=== PATIENT | male | born 1970 | race American Indian/Alaskan Native ===

== ENCOUNTER 2017-05-01 19:19 | Inpatient (IN) | payer OTHER ==
[2017-05-01 19:20] VITALS: BMI 35.6
[2017-05-01] MEDS ORDERED: Piperacillin/Tazobact 3.375 GM in Sodium Chloride 100 ML IVPB STA (20:14)
--- NOTE | 2017-05-01 20:19 | C.PDOC ---
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 Patient admits that he has an intermittent fever. Patient denies headache, dizziness, chills, sore throat, CP, SOB, dyspnea, abd. pain, V/D, denies weakness, sensory or vascular deficits to RIght arm. Ambulate to ED for evaluation, not in any apparent distress. Time Seen by Provider: 05/01/17 19:59 Chief Complaint (Nursing): Abnormal Skin Integrity History Per: Patient History/Exam Limitations: no limitations Onset/Duration Of Symptoms: Days Current Symptoms Are (Timing): Still Present Severity: Moderate Past Medical History Reviewed: Historical Data, Nursing Documentation, Vital Signs Vital Signs: Last Vital Signs Temp 99.1 F 05/02/17 02:51 Pulse 73 05/02/17 02:51 Resp 16 05/02/17 02:51 BP 122/71 05/02/17 02:51 Pulse Ox 97 05/02/17 02:51 - Medical History PMH: Asthma Denies: Depression Surgical History: No Surg Hx Family History: States: No Known Family Hx - Social History Hx Tobacco Use: Yes Hx Alcohol Use: Yes Hx Substance Use: Yes (pt denies on 05/01/17) - Immunization History Hx Tetanus Toxoid Vaccination: No Hx Influenza Vaccination: Yes Hx Pneumococcal Vaccination: No Review Of Systems Except As Marked, All Systems Reviewed And Found Negative. Constitutional: Positive for: Fever. Negative for: Chills Musculoskeletal: Positive for: Arm Pain (right forearm pain) Neurological: Negative for: Weakness, Numbness Physical Exam - Physical Exam Appears: Well, Non-toxic, No Acute Distress Skin: Normal Color, Warm, Other ((+)Right forearm tender mass 3#4cm (+) flactulance, (+) proximal streaking) Eye(s): bilateral: PERRL Oral Mucosa: Moist Neck: Trachea Midline, Supple Cardiovascular: Rhythm Regular Respiratory: No Decreased Breath Sounds, No Accessory Muscle Use, No Stridor, No Wheezing Gastrointestinal/Abdominal: Soft, No Tenderness, No Distention, No Guarding Back: No CVA Tenderness, No Vertebral Tenderness Extremity: Normal ROM (RUE), Tenderness (Right foream), Capillary Refill (Right hand), No Deformity Neurological/Psych: Oriented x3, Normal Speech, Normal Motor, Normal Sensation, Normal Reflexes ED Course And Treatment - Laboratory Results Result Diagrams: 05/01/17 20:25 05/01/17 20:25 Lab Interpretation: No Acute Changes O2 Sat by Pulse Oximetry: 96 (RA) Pulse Ox Interpretation: Normal Progress Note: BLood work review, no acute abdnormalities. No leukocytosis. Blood cx- pending. Pt has clinical findings c/w Right forearm abscess with cellulitis. Case discussed with Med-on-call and admission arranged. Surgical conulst called for , pt was seen by sirgical resident. Medical Decision Making Medical Decision Making: Plan: --Labs --Urinalysis Disposition - Disposition Disposition: HOSPITALIZED Disposition Time: 21:53 Condition: STABLE - Clinical Impression Clinical Impression: Cellulitis and abscess of other specified site - PA / CT MRI TECHNOLOGIST / Resident Statement MD/DO has reviewed & agrees with the documentation as recorded. - Scribe Statement The provider has reviewed the documentation as recorded by the Edis Guallpa Provider Attestation All medical record entries made by the Edis were at my direction and personally dictated by me. I have reviewed the chart and agree that the record accurately reflects my personal performance of the history, physical exam, medical decision making, and the department course for this patient. I have also personally directed, reviewed, and agree with the discharge instructions and disposition.
[2017-05-01 20:29] LABS: BASO # 0.1 K/uL (0.0-0.2); EOS # 0.1 K/uL (0.0-0.7); EOS % 0.9 % (0.0-4.0); HEMOGLOBIN 13.1 g/dL (12.0-18.0); LYMPH # 1.7 K/uL (1.0-4.3); LYMPH % 21.5 % (20.0-40.0); MEAN CELL VOLUME 89.8 fL (80.0-94.0); MEAN CORPUSCULAR HEMOGLOBIN 29.2 pg (27.0-31.0); MEAN CORPUSCULAR HGB CONC 32.6 g/dL (33.0-37.0); MEAN PLATELET VOLUME 7.5 fL (7.2-11.7); MONO # 1.1 K/uL (0.0-0.8); MONO % 14.3 % (0.0-10.0); NEUT % 62.3 % (50.0-75.0); RBC 4.49 Mil/uL (4.40-5.90); RED CELL DISTRIBUTION WIDTH 13.9 % (11.5-14.5)
[2017-05-01] MEDS ORDERED: Piperacill/Tazo 3.375gm in Dex 3.375 GM/50 ML BAG IVPB STA (20:31)
[2017-05-01 20:41] LABS: BLOOD UREA NITROGEN 7 mg/dL (9-20); CALCIUM 8.2 mg/dl (8.6-10.4); GFR AFRICAN-AMERICAN > 60; GFR NON-AFRICAN AMERICAN > 60
[2017-05-01 20:45] LABS: SQUAMOUS EPITHIAL < 1 /hpf (0-5); URINE BILIRUBIN NEGATIVE (NEGATIVE); URINE BLOOD 1+ (NEGATIVE); URINE CLARITY Clear (Clear); URINE COLOR Yellow (YELLOW); URINE GLUCOSE (UA) NORMAL (Normal); URINE LEUKOCYTE ESTERASE NEG Leu/uL (Negative); URINE NITRATE NEGATIVE (NEGATIVE); URINE PROTEIN NEGATIVE (NEGATIVE)
[2017-05-01] MEDS ORDERED: Vancomycin 1 gm/NS 200 ml 1 GM/200 ML BAG IVPB SCH (20:45)
[2017-05-01 20:51] LABS: BARBITURATES, UR NEGATIVE (NEGATIVE); BENZODIAZEPINES, UR NEGATIVE (NEGATIVE); PHENCYCLIDINE, UR NEGATIVE (NEGATIVE)
[2017-05-01 21:13] LABS: OPIATES, UR POSITIVE (NEGATIVE)
--- NOTE | 2017-05-01 22:35 | CP.PCM.CON ---
History of Present Illness - History of Present Illness History of Present Illness: General Surgery Consult for Dr. Terry Reason for consult: R forearm abscess 47 M with PMH of IVDA presents to the [facility] for right forearm cellulitis and abscess. Patient states that has been present for the past 4 days. Patient has had similar issue in the past. He states that it gradually developed and has progressively worse. Patient reports to using IV heroin whihc he last used 2 days ago. He states that he usually injects in his right arm. He rates pain as moderate to severe. He describes the pain as constant and aching located in proximal right forearm. Palpation and movement exacerbates pain while nothing alleviates it. Admit fever/chills. Denies cp, SOB, palpitations, abdominal pain , nausea, vomiting, diarrhea. PMH: [place] Meds: As per EMR ALLergy: NKDA PSH: Right arm surgery for penetrating wounds, brachial artery reconstruction FH: unknown Soical: smokes just under pack per day for at least 20 years, uses IV heroin daily, denies EtOH use Review of Systems - Review of Systems All systems: reviewed and no additional remarkable complaints except (as per hpi ) Past Patient History - Past Social History Smoking Status: Smoker Currrent Status Unknown - PULMONARY Hx Asthma: Yes - PSYCHIATRIC Hx Depression: No Hx Substance Use: Yes (pt denies on 05/01/17) - SURGICAL HISTORY Hx Surgeries: Yes Other/Comment: RT arm - ANESTHESIA Hx Anesthesia: Yes Hx Anesthesia Reactions: No Meds Allergies/Adverse Reactions: Allergies Allergy/AdvReac Type Severity Reaction Status Date / Time No Known Allergies Allergy Verified 06/26/13 14:51 - Medications Medications: Current Medications Vancomycin/Sodium Chloride (Vancomycin 1 Gm/Ns 200 Ml) 1 gm in 200 mls @ 166.7 mls/hr IVPB STAT [facility] Stop: 05/06/17 21:01 Piperacillin Sod/Tazobactam (Sod 3.375 gm/ Sodium Chloride) 100 mls @ 200 mls/ hr IVPB Q8H [facility] Piperacillin Sod/Tazobactam Sod (Zosyn 3.375 Gm Iv Premix) 3.375 gm in 50 mls @ 100 mls/hr IVPB Q8H [facility] Tramadol HCl (Ultram) 50 mg PO TID IRENE Physical Exam - Constitutional Appears: No Acute Distress - Head Exam Head Exam: ATRAUMATIC, NORMOCEPHALIC - Eye Exam Eye Exam: Normal appearance - ENT Exam ENT Exam: Mucous Membranes Dry - Respiratory Exam Respiratory Exam: NORMAL BREATHING PATTERN - Cardiovascular Exam Cardiovascular Exam: REGULAR RHYTHM - GI/Abdominal Exam GI & Abdominal Exam: Normal Bowel Sounds, Soft. absent: Tenderness - Extremities Exam Additional comments: RUE: proximal forearm lesion that is raised and erythematous, ~6 cm in diameter , small fluctuance area in center, indurated - Back Exam Back exam: absent: CVA tenderness (L), CVA tenderness (R) - Neurological Exam Neurological exam: Alert, Oriented x3 - Psychiatric Exam Psychiatric exam: Normal Affect, Normal Mood - Skin Skin Exam: Dry, Warm Results - Vital Signs Recent Vital Signs: Last Vital Signs Temp 99.8 F H 05/01/17 19:48 Pulse 96 H 05/01/17 19:48 Resp 18 05/01/17 19:48 BP 147/91 H 05/01/17 19:48 Pulse Ox 96 05/01/17 22:00 - Labs Result Diagrams: 05/01/17 20:25 05/01/17 20:25 Labs: Laboratory Results - last 24 hr 05/01/17 05/01/17 05/01/17 20:25 20:25 20:25 WBC 8.0 RBC 4.49 Hgb 13.1 Hct 40.3 MCV 89.8 MCH 29.2 MCHC 32.6 L RDW 13.9 Plt Count 323 MPV 7.5 Neut % (Auto) 62.3 Lymph % (Auto) 21.5 [place] % (Auto) 14.3 H Eos % (Auto) 0.9 Baso % (Auto) 1.0 Neut # 5.0 Lymph # 1.7 [place] # 1.1 H Eos # 0.1 Baso # 0.1 Sodium 129 L Potassium 4.1 Chloride 94 L Carbon Dioxide 27 Anion Gap 12 BUN 7 L Creatinine 0.8 Est GFR ( Amer) > 60 Est GFR (Non-Af Amer) > 60 Random Glucose 116 H Calcium 8.2 L Urine Color Yellow Urine Clarity Clear Urine pH 6.0 Ur Specific [place] 1.014 Urine Protein Negative Urine Glucose (UA) Normal Urine Ketones Negative Urine Blood 1+ H Urine Nitrate Negative Urine Bilirubin Negative Urine Urobilinogen 4.0 Ur Leukocyte Esterase Neg Urine RBC (Auto) 6 H Ur Squamous Epith Cells < 1 Urine Opiates Screen Urine Methadone Screen Ur Barbiturates Screen Ur Phencyclidine Scrn Ur Amphetamines Screen U Benzodiazepines Scrn U Oth Cocaine Metabols U Cannabinoids Screen 05/01/17 20:25 WBC RBC Hgb Hct MCV MCH MCHC RDW Plt Count MPV Neut % (Auto) Lymph % (Auto) [place] % (Auto) Eos % (Auto) Baso % (Auto) Neut # Lymph # [place] # Eos # Baso # Sodium Potassium Chloride Carbon Dioxide Anion Gap BUN Creatinine Est GFR ( Amer) Est GFR (Non-Af Amer) Random Glucose Calcium Urine Color Urine Clarity Urine pH Ur Specific [place] Urine Protein Urine Glucose (UA) Urine Ketones Urine Blood Urine Nitrate Urine Bilirubin Urine Urobilinogen Ur Leukocyte Esterase Urine RBC (Auto) Ur Squamous Epith Cells Urine Opiates Screen Positive H Urine Methadone Screen Negative Ur Barbiturates Screen Negative Ur Phencyclidine Scrn Negative Ur Amphetamines Screen Negative U Benzodiazepines Scrn Negative U Oth Cocaine Metabols Positive H U Cannabinoids Screen Negative Assessment & Plan - Assessment and Plan (Free Text) Plan: 47 M with right forearm cellulitis and abscess -IV fluids -IV antibiotics -Analgesics PRN -Possible drainage -Will Discuss with Dr. Harrison Tee PGY1
[2017-05-01] MEDS ORDERED: Piperacill/Tazo 3.375gm in Dex 3.375 GM/50 ML BAG IVPB SCH (23:00)
--- NOTE | 2017-05-01 23:21 | CP.PCM.HP ---
History of Present Illness - History of Present Illness History of Present Illness: CHIEF COMPLAINTS TODAY : 47 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 Patient admits that he has an intermittent fever. Patient denies headache, dizziness, chills, sore throat, CP, SOB, dyspnea, abd. pain, V/D, denies weakness, sensory or vascular deficits to RIght arm. Ambulate to ED for evaluation, not in any apparent distress. ROS. HEENT : N. Resp : No cough, wheezing ,pleuritic CP ,or hemoptysis Cardio : No anginal CP, PND, orthopnea, palpitation GI : No abd.pain, n/v ,diarrhea or GI bleeding . DYSLEXIA TEACHER : No headache, vertigo, focal deficit. Musculoskel : No joint swelling , Derm : No rash Psych : Normal affect. Ext : R. ARM PAIN PE. Pt. is alert awake in no distress. V.S As noted in the chart Head ,ear nose,throat and eyes : Normal. Neck : Supple with normal carotids. Lungs: Clear air entry. Heart : S1 & S2 normal with S4. No murmur. Abd : Soft non tender with normal bowel sounds. Neuro : Moves all ext. with no localized deficit. Ext : No edema with intact pulses.Non tender calves R. FOREARM CELLULITIS AND ABSCESS Derm : No rashes or decubitus ulcer. LABS/RADIOLOGY: ASSESSMENT/PLAN : R. ARM CELLULITIS AND ABSCESS SEC TO IVDA IV AB AND I&D Present on Admission - Present on Admission Any Indicators Present on Admission: No Past Patient History - Past Social History Smoking Status: Smoker Currrent Status Unknown - PULMONARY Hx Asthma: Yes - PSYCHIATRIC Hx Depression: No Hx Substance Use: Yes (pt denies on 05/01/17) - SURGICAL HISTORY Hx Surgeries: Yes Other/Comment: RT arm - ANESTHESIA Hx Anesthesia: Yes Hx Anesthesia Reactions: No Meds Allergies/Adverse Reactions: Allergies Allergy/AdvReac Type Severity Reaction Status Date / Time No Known Allergies Allergy Verified 06/26/13 14:51 Results - Vital Signs Recent Vital Signs: Last Vital Signs Temp 99.8 F H 05/01/17 19:48 Pulse 96 H 05/01/17 19:48 Resp 18 05/01/17 19:48 BP 147/91 H 05/01/17 19:48 Pulse Ox 96 05/01/17 22:00 - Labs Result Diagrams: 05/02/17 05:43 05/02/17 05:43 Labs: Laboratory Results - last 24 hr 05/01/17 05/01/17 05/01/17 20:25 20:25 20:25 WBC 8.0 RBC 4.49 Hgb 13.1 Hct 40.3 MCV 89.8 MCH 29.2 MCHC 32.6 L RDW 13.9 Plt Count 323 MPV 7.5 Neut % (Auto) 62.3 Lymph % (Auto) 21.5 [place] % (Auto) 14.3 H Eos % (Auto) 0.9 Baso % (Auto) 1.0 Neut # 5.0 Lymph # 1.7 [place] # 1.1 H Eos # 0.1 Baso # 0.1 Sodium 129 L Potassium 4.1 Chloride 94 L Carbon Dioxide 27 Anion Gap 12 BUN 7 L Creatinine 0.8 Est GFR ( Amer) > 60 Est GFR (Non-Af Amer) > 60 Random Glucose 116 H Calcium 8.2 L Urine Color Yellow Urine Clarity Clear Urine pH 6.0 Ur Specific [place] 1.014 Urine Protein Negative Urine Glucose (UA) Normal Urine Ketones Negative Urine Blood 1+ H Urine Nitrate Negative Urine Bilirubin Negative Urine Urobilinogen 4.0 Ur Leukocyte Esterase Neg Urine RBC (Auto) 6 H Ur Squamous Epith Cells < 1 Urine Opiates Screen Urine Methadone Screen Ur Barbiturates Screen Ur Phencyclidine Scrn Ur Amphetamines Screen U Benzodiazepines Scrn U Oth Cocaine Metabols U Cannabinoids Screen 05/01/17 20:25 WBC RBC Hgb Hct MCV MCH MCHC RDW Plt Count MPV Neut % (Auto) Lymph % (Auto) [place] % (Auto) Eos % (Auto) Baso % (Auto) Neut # Lymph # [place] # Eos # Baso # Sodium Potassium Chloride Carbon Dioxide Anion Gap BUN Creatinine Est GFR ( Amer) Est GFR (Non-Af Amer) Random Glucose Calcium Urine Color Urine Clarity Urine pH Ur Specific [place] Urine Protein Urine Glucose (UA) Urine Ketones Urine Blood Urine Nitrate Urine Bilirubin Urine Urobilinogen Ur Leukocyte Esterase Urine RBC (Auto) Ur Squamous Epith Cells Urine Opiates Screen Positive H Urine Methadone Screen Negative Ur Barbiturates Screen Negative Ur Phencyclidine Scrn Negative Ur Amphetamines Screen Negative U Benzodiazepines Scrn Negative U Oth Cocaine Metabols Positive H U Cannabinoids Screen Negative
[2017-05-01] MEDS: Piperacillin/Tazobact 3.375 GM in Sodium Chloride 100 ML IVPB SCH (23:25)
[2017-05-02] MEDS ORDERED: Sodium Chloride 0.9% 1,000 ML ONE (02:12)
[2017-05-02] MEDS: Sodium Chloride 0.9% 1,000 ML IV SCH ×4 (02:15→19:45)
[2017-05-02 05:47] LABS: BASO # 0.1 K/uL (0.0-0.2); BASO % 1.1 % (0.0-2.0); EOS # 0.1 K/uL (0.0-0.7); EOS % 1.9 % (0.0-4.0); HEMOGLOBIN 12.7 g/dL (12.0-18.0); LYMPH # 1.9 K/uL (1.0-4.3); LYMPH % 29.6 % (20.0-40.0); MEAN CELL VOLUME 89.1 fL (80.0-94.0); MEAN CORPUSCULAR HEMOGLOBIN 29.9 pg (27.0-31.0); MEAN CORPUSCULAR HGB CONC 33.6 g/dL (33.0-37.0); MEAN PLATELET VOLUME 7.8 fL (7.2-11.7); MONO % 15.9 % (0.0-10.0); NEUT # 3.3 K/uL (1.8-7.0); NEUT % 51.5 % (50.0-75.0); RBC 4.25 Mil/uL (4.40-5.90); RED CELL DISTRIBUTION WIDTH 14.1 % (11.5-14.5); WHITE BLOOD COUNT 6.5 K/uL (4.8-10.8)
[2017-05-02 06:18] LABS: ALB/GLOB RATIO 0.8 (1.0-2.1); ALBUMIN 3.4 g/dL (3.5-5.0); ALT/SGPT 27 U/L (21-72); AST/SGOT 25 U/L (17-59); BLOOD UREA NITROGEN 9 mg/dL (9-20); CALCIUM 7.8 mg/dl (8.6-10.4); GFR AFRICAN-AMERICAN > 60; GFR NON-AFRICAN AMERICAN > 60
[2017-05-02] MEDS: Piperacill/Tazo 3.375gm in Dex 3.375 GM/50 ML BAG IVPB SCH ×3 (06:39→21:54)
[2017-05-02] MEDS ORDERED: Lidocaine 1% Inj (20ml) IV ONE (07:57)
[2017-05-02] MEDS ORDERED: Albuterol 0.083% Inhal Sol (2.5 mg/3 mL) UD ONE (08:10)
[2017-05-02] MEDS: Albuterol 0.042% Inhal Sol (1.25 mg/3 mL) UD INH STA ×2 (08:14→08:22)
[2017-05-02] MEDS ORDERED: Albuterol-Ipratrop 3 mg / 0.5 (3 ml) UD ONE (08:20)
[2017-05-02] MEDS ORDERED: Albuterol 0.042% Inhal Sol (1.25 mg/3 mL) UD ONE (08:27)
--- NOTE | 2017-05-02 08:49 | CP.PCM.PN ---
Subjective - Date & Time of Evaluation Date of Evaluation: 05/02/17 Time of Evaluation: 08:47 - Subjective Subjective: Surgery Pt s&e. Denies F/C/N/V/D. Pain controlled. Objective - Vital Signs/Intake and Output Vital Signs (last 24 hours): Temp Pulse Resp BP Pulse Ox 99.1 F 84 20 148/83 97 05/02/17 07:28 05/02/17 07:28 05/02/17 08:10 05/02/17 07:28 05/02/17 07:28 - Medications Medications: Current Medications Heparin Sodium (Porcine) (Heparin) 5,000 units SC BID [facility] Sodium Chloride (Sodium Chloride 0.9%) 1,000 mls @ 150 mls/hr IV .Q6H40M [facility] Last Admin: 05/02/17 06:26 Dose: Not Given Vancomycin HCl 1,000 mg/ (Sodium Chloride) 200 mls @ 166.6 mls/hr IVPB Q12H [facility] Piperacillin Sod/Tazobactam Sod (Zosyn 3.375 Gm Iv Premix) 3.375 gm in 50 mls @ 100 mls/hr IVPB Q8H [facility] Last Admin: 05/02/17 06:39 Dose: 100 mls/hr Pantoprazole Sodium (Protonix Inj) 40 mg IVP DAILY [facility] Tramadol HCl (Ultram) 50 mg PO TID [facility] - Labs Labs: 05/02/17 05:43 05/02/17 05:43 - Constitutional Appears: No Acute Distress - Head Exam Head Exam: ATRAUMATIC, NORMAL INSPECTION, NORMOCEPHALIC - Eye Exam Eye Exam: EOMI, Normal appearance, PERRL Pupil Exam: NORMAL ACCOMODATION, PERRL - ENT Exam ENT Exam: Mucous Membranes Moist, Normal Exam - Neck Exam Neck Exam: Full ROM, Normal Inspection. absent: Lymphadenopathy - Respiratory Exam Respiratory Exam: Clear to Ausculation Bilateral, NORMAL BREATHING PATTERN - Cardiovascular Exam Cardiovascular Exam: REGULAR RHYTHM, +S1, +S2. absent: Murmur - GI/Abdominal Exam GI & Abdominal Exam: Soft, Normal Bowel Sounds. absent: Distended, Tenderness - Extremities Exam Extremities Exam: Full ROM, Normal Capillary Refill, Tenderness. absent: Joint Swelling, Normal Inspection, Pedal Edema Additional comments: R arm AC indurated. erythematous. Fluctuant. - Back Exam Back Exam: NORMAL INSPECTION - Neurological Exam Neurological Exam: Alert, Awake, CN II-XII Intact, Normal Gait, Oriented x3 - Psychiatric Exam Psychiatric exam: Normal Affect, Normal Mood - Skin Skin Exam: Dry, Erythema, Intact, Warm. absent: Normal Color Assessment and Plan - Assessment and Plan (Free Text) Assessment: 47 M with right forearm cellulitis and abscess -IV fluids -IV antibiotics -Analgesics PRN -Bedside I &D today - Discussed with Dr. Terry
[2017-05-02] MEDS: Piperacillin/Tazobact 3.375 GM in Sodium Chloride 100 ML IVPB SCH (08:52)
[2017-05-02] MEDS ORDERED: Lidocaine 2% Inj (20ml) ONE (09:30)
[2017-05-02] MEDS ORDERED: Vancomycin 500mg/D5W 100 ml 500 MG/100 ML BAG IVPB ONE (10:45)
--- NOTE | 2017-05-02 15:47 | PCM.SURG1 ---
Surgeon's Initial Post Op Note - Surgeon's Notes Surgeon: Dr. Terry Rn Corrections: rose Herman PGY2 Type of Anesthesia: Local Pre-Operative Diagnosis: R arm abscess Operative Findings: R arm abscess 20cc purulent fluids Post-Operative Diagnosis: Same Operation Performed: [place] and drainage of R arm abccess Specimen/Specimens Removed: 20 cc purulent fluids Estimated Blood Loss: EBL {In ML}: 5 Blood Products Given: N/A Post-Op Condition: Good Date of Surgery/Procedure: 05/02/17 Time of Surgery/Procedure: 15:47
[2017-05-02 16:25] VITALS: RESP 20
[2017-05-03] MEDS: Sodium Chloride 0.9% 1,000 ML IV SCH ×5 (01:00→20:39)
[2017-05-03] MEDS: Piperacill/Tazo 3.375gm in Dex 3.375 GM/50 ML BAG IVPB SCH ×3 (05:45→22:43)
[2017-05-03 07:32] LABS: BASO # 0.1 K/uL (0.0-0.2); BASO % 1.4 % (0.0-2.0); EOS # 0.1 K/uL (0.0-0.7); EOS % 2.4 % (0.0-4.0); HEMOGLOBIN 12.9 g/dL (12.0-18.0); LYMPH # 1.6 K/uL (1.0-4.3); LYMPH % 31.2 % (20.0-40.0); MEAN CELL VOLUME 90.4 fL (80.0-94.0); MEAN CORPUSCULAR HEMOGLOBIN 29.7 pg (27.0-31.0); MEAN CORPUSCULAR HGB CONC 32.9 g/dL (33.0-37.0); MEAN PLATELET VOLUME 8.1 fL (7.2-11.7); MONO # 0.8 K/uL (0.0-0.8); MONO % 16.3 % (0.0-10.0); NEUT # 2.4 K/uL (1.8-7.0); NEUT % 48.7 % (50.0-75.0); NRBC % 0.1 % (0.0-2.0); RBC 4.35 Mil/uL (4.40-5.90); RED CELL DISTRIBUTION WIDTH 14.2 % (11.5-14.5)
[2017-05-03 07:39] LABS: ALB/GLOB RATIO 0.8 (1.0-2.1); ALBUMIN 3.4 g/dL (3.5-5.0); ALT/SGPT 23 U/L (21-72); AST/SGOT 23 U/L (17-59); BLOOD UREA NITROGEN 11 mg/dL (9-20); CALCIUM 7.8 mg/dl (8.6-10.4); GFR AFRICAN-AMERICAN > 60; GFR NON-AFRICAN AMERICAN > 60
--- NOTE | 2017-05-03 08:12 | CP.PCM.PN ---
Subjective - Date & Time of Evaluation Date of Evaluation: 05/03/17 Time of Evaluation: 07:00 - Subjective Subjective: Surgery Progress Note: Patient was seen and examined at bedside in the AM. Patient states he had some chills due to withdrawal. Patient denies nausea, vomiting, diarrhea or constipation. Pain is controlled. Objective - Vital Signs/Intake and Output Vital Signs (last 24 hours): Temp Pulse Resp BP Pulse Ox 98.4 F 77 20 141/81 98 05/03/17 00:00 05/03/17 00:00 05/03/17 00:00 05/03/17 00:00 05/03/17 00:00 Intake and Output: 05/03/17 05/03/17 06:59 18:59 Intake Total 1475 Balance 1475 - Medications Medications: Current Medications Heparin Sodium (Porcine) (Heparin) 5,000 units SC BID [facility] Last Admin: 05/02/17 18:00 Dose: Not Given Sodium Chloride (Sodium Chloride 0.9%) 1,000 mls @ 150 mls/hr IV .Q6H40M [facility] Last Admin: 05/03/17 01:00 Dose: 150 mls/hr Vancomycin HCl 1,000 mg/ (Sodium Chloride) 200 mls @ 166.6 mls/hr IVPB Q12H [facility] Last Admin: 05/02/17 21:00 Dose: 166.6 mls/hr Piperacillin Sod/Tazobactam Sod (Zosyn 3.375 Gm Iv Premix) 3.375 gm in 50 mls @ 100 mls/hr IVPB Q8H [facility] Last Admin: 05/03/17 05:45 Dose: 100 mls/hr Pantoprazole Sodium (Protonix Inj) 40 mg IVP DAILY [facility] Last Admin: 05/02/17 11:05 Dose: 40 mg Pneumococcal Polyvalent Vaccine (Pneumovax 23 Vaccine) 0.5 ml IM .ONCE ONE Stop: 05/04/17 10:01 Tramadol HCl (Ultram) 50 mg PO TID [facility] Last Admin: 05/02/17 17:23 Dose: 50 mg - Labs Labs: 05/03/17 06:55 05/03/17 06:55 - Constitutional Appears: No Acute Distress - Head Exam Head Exam: ATRAUMATIC, NORMAL INSPECTION - Eye Exam Eye Exam: EOMI, Normal appearance - ENT Exam ENT Exam: Mucous Membranes Moist - Respiratory Exam Respiratory Exam: NORMAL BREATHING PATTERN - Cardiovascular Exam Cardiovascular Exam: +S1, +S2 - GI/Abdominal Exam GI & Abdominal Exam: Soft, Normal Bowel Sounds. absent: Tenderness - Extremities Exam Extremities Exam: Full ROM, Tenderness. absent: Calf Tenderness, Joint Swelling , Pedal Edema Additional comments: R arm AC indurated. erythematous. Fluctuant. - Neurological Exam Neurological Exam: Alert, Awake, Oriented x3 - Psychiatric Exam Psychiatric exam: Normal Affect, Normal Mood - Skin Skin Exam: Dry, Intact, Normal Color, Warm Assessment and Plan - Assessment and Plan (Free Text) Assessment: 47 M with right forearm cellulitis and abscess - IV fluids - IV antibiotics - Analgesics PRN - post op day 1 bedside I&D - No other surgical intervention needed - Patient to follow up with Dr. Terry in 7-[address] [place] [id number] Dulce Maria Burrell PGY-1
--- NOTE | 2017-05-03 13:45 | CP.PCM.DIS ---
Provider - Provider Date of Admission: 05/01/17 21:58 Attending physician: Rodrigo Romano MD Time Spent in preparation of Discharge (in minutes): 30 Hospital Course - Lab Results Lab Results: Micro Results 05/01/17 20:13 Blood Blood Culture - Preliminary NO GROWTH AFTER 24 HOURS 05/01/17 20:13 Blood Blood Culture - Preliminary NO GROWTH AFTER 24 HOURS 05/01/17 21:00 Urine Urine Culture - Final No Growth (<1,000 CFU/ML) 05/02/17 10:33 Abscess - Abscess Gram Stain - Final Most Recent Lab Values WBC 5.0 K/uL (4.8-10.8) 05/03/17 06:55 RBC 4.35 Mil/uL (4.40-5.90) L 05/03/17 06:55 Hgb 12.9 g/dL (12.0-18.0) 05/03/17 06:55 Hct 39.3 % (35.0-51.0) 05/03/17 06:55 MCV 90.4 fL (80.0-94.0) 05/03/17 06:55 MCH 29.7 pg (27.0-31.0) 05/03/17 06:55 MCHC 32.9 g/dL (33.0-37.0) L 05/03/17 06:55 RDW 14.2 % (11.5-14.5) 05/03/17 06:55 Plt Count 306 K/uL (130-400) 05/03/17 06:55 MPV 8.1 fL (7.2-11.7) 05/03/17 06:55 Neut % (Auto) 48.7 % (50.0-75.0) L 05/03/17 06:55 Lymph % (Auto) 31.2 % (20.0-40.0) 05/03/17 06:55 [place] % (Auto) 16.3 % (0.0-10.0) H 05/03/17 06:55 Eos % (Auto) 2.4 % (0.0-4.0) 05/03/17 06:55 Baso % (Auto) 1.4 % (0.0-2.0) 05/03/17 06:55 Neut # 2.4 K/uL (1.8-7.0) 05/03/17 06:55 Lymph # 1.6 K/uL (1.0-4.3) 05/03/17 06:55 [place] # 0.8 K/uL (0.0-0.8) 05/03/17 06:55 Eos # 0.1 K/uL (0.0-0.7) 05/03/17 06:55 Baso # 0.1 K/uL (0.0-0.2) 05/03/17 06:55 Sodium 136 mmol/L (132-148) 05/03/17 06:55 Potassium 3.7 mmol/L (3.6-5.2) 05/03/17 06:55 Chloride 103 mmol/L (98-107) 05/03/17 06:55 Carbon Dioxide 26 mmol/L (22-30) 05/03/17 06:55 Anion Gap 10 (10-20) 05/03/17 06:55 BUN 11 mg/dL (9-20) 05/03/17 06:55 Creatinine 0.9 mg/dL (0.8-1.5) 05/03/17 06:55 Est GFR ( Amer) > 60 05/03/17 06:55 Est GFR (Non-Af Amer) > 60 05/03/17 06:55 Random Glucose 99 mg/dL (75-110) 05/03/17 06:55 Calcium 7.8 mg/dl (8.6-10.4) L 05/03/17 06:55 Total Bilirubin 0.5 mg/dL (0.2-1.3) 05/03/17 06:55 AST 23 U/L (17-59) 05/03/17 06:55 ALT 23 U/L (21-72) 05/03/17 06:55 Alkaline Phosphatase 79 U/L (38-126) 05/03/17 06:55 Total Protein 7.5 g/dL (6.3-8.3) 05/03/17 06:55 Albumin 3.4 g/dL (3.5-5.0) L 05/03/17 06:55 Globulin 4.2 gm/dL (2.2-3.9) H 05/03/17 06:55 Albumin/Globulin Ratio 0.8 (1.0-2.1) L 05/03/17 06:55 Urine Color Yellow (YELLOW) 05/01/17 20:25 Urine Clarity Clear (Clear) 05/01/17 20:25 Urine pH 6.0 (5.0-8.0) 05/01/17 20:25 Ur Specific [place] 1.014 (1.003-1.030) 05/01/17 20:25 Urine Protein Negative mg/dL (NEGATIVE) 05/01/17 20:25 Urine Glucose (UA) Normal mg/dL (Normal) 05/01/17 20:25 Urine Ketones Negative mg/dL (NEGATIVE) 05/01/17 20:25 Urine Blood 1+ (NEGATIVE) H 05/01/17 20:25 Urine Nitrate Negative (NEGATIVE) 05/01/17 20:25 Urine Bilirubin Negative (NEGATIVE) 05/01/17 20:25 Urine Urobilinogen 4.0 mg/dL (0.2-1.0) 05/01/17 20:25 Ur Leukocyte Esterase Neg [place]/uL (Negative) 05/01/17 20:25 Urine RBC (Auto) 6 /hpf (0-3) H 05/01/17 20:25 Ur Squamous Epith Cells < 1 /hpf (0-5) 05/01/17 20:25 Urine Opiates Screen Positive (NEGATIVE) H 05/01/17 20:25 Urine Methadone Screen Negative (NEGATIVE) 05/01/17 20:25 Ur Barbiturates Screen Negative (NEGATIVE) 05/01/17 20:25 Ur Phencyclidine Scrn Negative (NEGATIVE) 05/01/17 20:25 Ur Amphetamines Screen Negative (NEGATIVE) 05/01/17 20:25 U Benzodiazepines Scrn Negative (NEGATIVE) 05/01/17 20:25 U Oth Cocaine Metabols Positive (NEGATIVE) H 05/01/17 20:25 U Cannabinoids Screen Negative (NEGATIVE) 05/01/17 20:25 - Hospital Course Hospital Course: PT WAS ADMITTED WITH R ARM ABSCESS IT WAS DRAINED AT BEDSIDE PT STABLE D/C ON PO AB Discharge Exam - Head Exam Head Exam: ATRAUMATIC, NORMAL INSPECTION Discharge Plan - Follow Up Plan Condition: STABLE Disposition: HOME/ ROUTINE
[2017-05-03] MEDS: Vancomycin 1 gm/NS 200 ml 1 GM/200 ML BAG IVPB SCH (20:38)
[2017-05-04] MEDS: Sodium Chloride 0.9% 1,000 ML IV SCH ×5 (02:30→18:44)
--- NOTE | 2017-05-04 04:48 | OP ---
PROCEDURE DATE: 05/01/2017 SURGEON: Dr. Melissa Herman ANESTHESIA: Local. PREOPERATIVE DIAGNOSIS: Abscess, right arm. POSTOPERATIVE DIAGNOSIS: Abscess, right arm. DESCRIPTION OF OPERATION: The procedure was performed in the holding area of the emergency room at the bedside. The right arm was prepped and draped in the usual sterile manner and 1% lidocaine was infiltrated into the skin overlying the right arm abscess. Incision was made into the area of the abscess with drainage of approximately 20 mL of purulent fluid. The wound was irrigated and a small amount of gauze packing was lightly placed to keep the skin edges apart followed by a dry sterile dressing. The patient tolerated the procedure well. Estimated blood loss for the procedure was 5 mL. Cherry Terry MD [facility]
[2017-05-04] MEDS: Piperacill/Tazo 3.375gm in Dex 3.375 GM/50 ML BAG IVPB SCH ×3 (05:45→22:30)
[2017-05-04] MEDS: Vancomycin 1 gm/NS 200 ml 1 GM/200 ML BAG IVPB SCH ×2 (09:58→20:58)
[2017-05-04] MEDS ORDERED: Influenza Vaccine 60 mcg/0.5 mL SYR (4YR UP) IM ONE (10:00)
[2017-05-04] MEDS ORDERED: Pneumococcal 23-Valent Vaccine IM ONE (10:00)
--- NOTE | 2017-05-04 13:54 | CP.PCM.PN ---
Subjective - Date & Time of Evaluation Date of Evaluation: 05/04/17 Time of Evaluation: 13:53 - Subjective Subjective: MILD WITHDRAWAL ON IV AB C/S PENDING Objective - Vital Signs/Intake and Output Vital Signs (last 24 hours): Temp Pulse Resp BP Pulse Ox 98.5 F 80 20 137/74 96 05/04/17 08:09 05/04/17 08:09 05/04/17 08:09 05/04/17 08:09 05/04/17 08:09 Intake and Output: 05/04/17 05/04/17 11:59 23:59 Intake Total 1475 Balance 1475 - Medications Medications: Current Medications Heparin Sodium (Porcine) (Heparin) 5,000 units SC BID [facility] Last Admin: 05/04/17 09:59 Dose: Not Given Sodium Chloride (Sodium Chloride 0.9%) 1,000 mls @ 150 mls/hr IV .Q6H40M [facility] Last Admin: 05/04/17 09:58 Dose: 150 mls/hr Piperacillin Sod/Tazobactam Sod (Zosyn 3.375 Gm Iv Premix) 3.375 gm in 50 mls @ 100 mls/hr IVPB Q8H [facility] Last Admin: 05/04/17 05:45 Dose: 100 mls/hr Vancomycin/Sodium Chloride (Vancomycin 1 Gm/Ns 200 Ml) 1 gm in 200 mls @ 166.6 mls/hr IVPB Q12H [facility] Stop: 05/08/17 21:01 Last Admin: 05/04/17 09:58 Dose: 166.6 mls/hr Pantoprazole Sodium (Protonix Inj) 40 mg IVP DAILY [facility] Last Admin: 05/04/17 09:58 Dose: 40 mg Tramadol HCl (Ultram) 50 mg PO TID [facility] Last Admin: 05/04/17 10:18 Dose: 50 mg - Labs Labs: 05/03/17 06:55 05/03/17 06:55
--- NOTE | 2017-05-04 15:58 | CP.PCM.PCO ---
Physician Communication Note - Physician Communication Note Physician Communication Note: pt cleared for d/c on Abx. dressing change PRN. f/ u in clinic w/ Dr. Terry
[2017-05-05] MEDS: Sodium Chloride 0.9% 1,000 ML IV SCH (03:30)
[2017-05-05 06:21] VITALS: TEMP 98.5
[2017-05-05] MEDS: Vancomycin 1 gm/NS 200 ml 1 GM/200 ML BAG IVPB SCH (09:50)
[2017-05-05 10:08] VITALS: BP 150/94; PULSE 65; O2SAT 99
--- NOTE | 2017-05-05 16:18 | CP.PCM.DIS ---
Provider - Provider Date of Admission: 05/01/17 21:58 Attending physician: Rodrigo Romano MD Time Spent in preparation of Discharge (in minutes): 20 Hospital Course - Lab Results Lab Results: Micro Results 05/02/17 10:33 Abscess - Abscess Gram Stain - Final 05/02/17 10:33 Abscess - Abscess Wound Culture - Final Strep Intermedius/Milleri 05/01/17 20:13 Blood Blood Culture - Preliminary NO GROWTH AFTER 3 DAYS 05/01/17 20:13 Blood Blood Culture - Preliminary NO GROWTH AFTER 3 DAYS 05/01/17 21:00 Urine Urine Culture - Final No Growth (<1,000 CFU/ML) Most Recent Lab Values WBC 5.0 K/uL (4.8-10.8) 05/03/17 06:55 RBC 4.35 Mil/uL (4.40-5.90) L 05/03/17 06:55 Hgb 12.9 g/dL (12.0-18.0) 05/03/17 06:55 Hct 39.3 % (35.0-51.0) 05/03/17 06:55 MCV 90.4 fL (80.0-94.0) 05/03/17 06:55 MCH 29.7 pg (27.0-31.0) 05/03/17 06:55 MCHC 32.9 g/dL (33.0-37.0) L 05/03/17 06:55 RDW 14.2 % (11.5-14.5) 05/03/17 06:55 Plt Count 306 K/uL (130-400) 05/03/17 06:55 MPV 8.1 fL (7.2-11.7) 05/03/17 06:55 Neut % (Auto) 48.7 % (50.0-75.0) L 05/03/17 06:55 Lymph % (Auto) 31.2 % (20.0-40.0) 05/03/17 06:55 [place] % (Auto) 16.3 % (0.0-10.0) H 05/03/17 06:55 Eos % (Auto) 2.4 % (0.0-4.0) 05/03/17 06:55 Baso % (Auto) 1.4 % (0.0-2.0) 05/03/17 06:55 Neut # 2.4 K/uL (1.8-7.0) 05/03/17 06:55 Lymph # 1.6 K/uL (1.0-4.3) 05/03/17 06:55 [place] # 0.8 K/uL (0.0-0.8) 05/03/17 06:55 Eos # 0.1 K/uL (0.0-0.7) 05/03/17 06:55 Baso # 0.1 K/uL (0.0-0.2) 05/03/17 06:55 Sodium 136 mmol/L (132-148) 05/03/17 06:55 Potassium 3.7 mmol/L (3.6-5.2) 05/03/17 06:55 Chloride 103 mmol/L (98-107) 05/03/17 06:55 Carbon Dioxide 26 mmol/L (22-30) 05/03/17 06:55 Anion Gap 10 (10-20) 05/03/17 06:55 BUN 11 mg/dL (9-20) 05/03/17 06:55 Creatinine 0.9 mg/dL (0.8-1.5) 05/03/17 06:55 Est GFR ( Amer) > 60 05/03/17 06:55 Est GFR (Non-Af Amer) > 60 05/03/17 06:55 Random Glucose 99 mg/dL (75-110) 05/03/17 06:55 Calcium 7.8 mg/dl (8.6-10.4) L 05/03/17 06:55 Total Bilirubin 0.5 mg/dL (0.2-1.3) 05/03/17 06:55 AST 23 U/L (17-59) 05/03/17 06:55 ALT 23 U/L (21-72) 05/03/17 06:55 Alkaline Phosphatase 79 U/L (38-126) 05/03/17 06:55 Total Protein 7.5 g/dL (6.3-8.3) 05/03/17 06:55 Albumin 3.4 g/dL (3.5-5.0) L 05/03/17 06:55 Globulin 4.2 gm/dL (2.2-3.9) H 05/03/17 06:55 Albumin/Globulin Ratio 0.8 (1.0-2.1) L 05/03/17 06:55 Urine Color Yellow (YELLOW) 05/01/17 20:25 Urine Clarity Clear (Clear) 05/01/17 20:25 Urine pH 6.0 (5.0-8.0) 05/01/17 20:25 Ur Specific [place] 1.014 (1.003-1.030) 05/01/17 20:25 Urine Protein Negative mg/dL (NEGATIVE) 05/01/17 20:25 Urine Glucose (UA) Normal mg/dL (Normal) 05/01/17 20:25 Urine Ketones Negative mg/dL (NEGATIVE) 05/01/17 20:25 Urine Blood 1+ (NEGATIVE) H 05/01/17 20:25 Urine Nitrate Negative (NEGATIVE) 05/01/17 20:25 Urine Bilirubin Negative (NEGATIVE) 05/01/17 20:25 Urine Urobilinogen 4.0 mg/dL (0.2-1.0) 05/01/17 20:25 Ur Leukocyte Esterase Neg [place]/uL (Negative) 05/01/17 20:25 Urine RBC (Auto) 6 /hpf (0-3) H 05/01/17 20:25 Ur Squamous Epith Cells < 1 /hpf (0-5) 05/01/17 20:25 Urine Opiates Screen Positive (NEGATIVE) H 05/01/17 20:25 Urine Methadone Screen Negative (NEGATIVE) 05/01/17 20:25 Ur Barbiturates Screen Negative (NEGATIVE) 05/01/17 20:25 Ur Phencyclidine Scrn Negative (NEGATIVE) 05/01/17 20:25 Ur Amphetamines Screen Negative (NEGATIVE) 05/01/17 20:25 U Benzodiazepines Scrn Negative (NEGATIVE) 05/01/17 20:25 U Oth Cocaine Metabols Positive (NEGATIVE) H 05/01/17 20:25 U Cannabinoids Screen Negative (NEGATIVE) 05/01/17 20:25 - Hospital Course Hospital Course: 47 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 Patient admits that he has an intermittent fever. Patient denies headache, dizziness, chills, sore throat, CP, SOB, dyspnea, abd. pain, V/D, denies weakness, sensory or vascular deficits to RIght arm. Ambulate to ED for evaluation, not in any apparent distress. SURGERY PERFORMED BEDSIDE I&D AND PUS SHOWED STREP INTERMED SEN TO PCN PT WAS D/C ON KEFLEX AND F/U WITH SURGERY IN 1 WEEK Discharge Exam - Head Exam Head Exam: ATRAUMATIC, NORMAL INSPECTION Discharge Plan - Follow Up Plan Condition: STABLE Disposition: HOME/ ROUTINE Instructions: Cephalexin (By mouth), Cellulitis (DC), Abscess (GEN) Referrals: Cherry Terry MD [Staff Provider] - Rodrigo Romano MD [Staff Provider] -
== END 2017-05-05 11:28 | disposition home or self-care (01) | DRG 277 ==
LOC: C.ER 19:19 → C.9E 21:58 → C.3T 05-02 12:21 → C.9E 05-02 12:57 → C.3T 05-02 16:09
PROVIDERS: ADMIT Internal Medicine Cardiovascular Disease; ATTEND Internal Medicine Cardiovascular Disease
DX: L03.113 Cellulitis of right upper limb (principal); F11.10 Opioid abuse, uncomplicated; F14.10 Cocaine abuse, uncomplicated; F17.210 Nicotine dependence, cigarettes, uncomplicated; J45.909 Unspecified asthma, uncomplicated; L02.413 Cutaneous abscess of right upper limb